=== PATIENT | female | born 1980 | race Caucasian/White ===

== ENCOUNTER 2018-09-02 15:50 | Emergency (ER) | payer OTHER ==
[2018-09-02 16:11] VITALS: BP 109/63; PULSE 76; TEMP 98.3; BMI 19.3
[2018-09-02] MEDS ORDERED: diphenhydrAMINE HCL 25 MG CAPSULE (FP) PO ONE ×2 (16:53→17:02)
[2018-09-02] MEDS ORDERED: DEXAMETHASONE LIQUID 0.5 MG/5 ML 240 ML BULK BOTTLE PO ONE (16:53)
[2018-09-02] MEDS ORDERED: predniSONE 20 MG TABLET (UD) PO ONE (16:55)
[2018-09-02] MEDS ORDERED: DEXAMETHASONE SOD PHOSPHATE 10 MG/1 ML VIAL ONE (17:01)
[2018-09-02] MEDS ORDERED: predniSONE 20 MG TABLET (UD) ONE (17:02)
--- NOTE | 2018-09-02 17:02 | PDOC ---
History of Present Illness - General Chief Complaint: Rash Stated Complaint: RASH Time Seen by Provider: 09/02/18 16:20 History Source: Patient Exam Limitations: No Limitations - History of Present Illness Initial Comments: 09/02/18 19:28 HISTORY OF PRESENT ILLNESS: 38-year-old woman presents emergency department for 2 weeks of rash neck, upper extremities and skin of the abdomen immediately above the waist. Patient is unable to identify any aggravating or alleviating factors. She denies any change in soaps, shampoos, conditioners, lotions, cosmetics, fabric softener, laundry detergent or soaps. She denies any change in foods or medications. Patient has not tried any auqo-cre-tglehdh remedies prior to evaluation. No recent travel or sick contacts. PAST MEDICAL HISTORY: Denies past medical history SURGICAL HISTORY: Denies ALLERGIES: No known drug allergies REVIEW OF SYSTEMS General/Constitutional: Denies fever or chills. Denies weakness, weight change. HEENT: Denies change in vision. Denies ear pain or discharge. Denies sore throat. Cardiovascular: Denies chest pain or shortness of breath. Respiratory: Denies cough, wheezing, or hemoptysis. Gastrointestinal: Denies nausea, vomiting, diarrhea or constipation. Denies rectal bleeding. Genitourinary: Denies dysuria, frequency, or change in urination. Musculoskeletal: Denies joint or muscle swelling or pain. Denies neck or back pain. Skin and breasts: see HPI Neurologic: Denies headache, vertigo, loss of consciousness, or loss of sensation. Psychiatric: Denies depression or anxiety. Endocrine: Denies increased thirst. Denies abnormal weight change. Hematologic/Lymphatic: Denies anemia, easy bleeding, or history of blood clots. Allergic/Immunologic: Denies hives or skin allergy. Denies latex allergy. PHYSICAL EXAM General Appearance: Well-appearing, appropriately dressed. No apparent distress , no intoxication. Respiratory/Chest: Lungs CTAB. No shortness of breath, chest tenderness, respiratory distress, accessory muscle use. No crackles, rales, rhonchi, stridor , wheezing, dullness Cardiovascular: RRR. S1, S2. No JVD, murmur, bradycardia, tachycardia. Integumentary: [place] raised pruritic maculopapular rash presents to bilateral antecubitals, skin at the base of the neck circumferentially and skin immediately superior to the iliac crest bilaterally. Multiple scratch patiño present around area of rash. Past History - Past Medical History Allergies/Adverse Reactions: Allergies Allergy/AdvReac Type Severity Reaction Status Date / Time No Known Allergies Allergy Verified 09/02/18 16:11 Home Medications: Ambulatory Orders predniSONE [Deltasone -] 40 mg PO DAILY #4 tablet 09/02/18 - Suicide/Smoking/Psychosocial Hx Smoking History: Never smoked Have you smoked in the past 12 months: No Information on smoking cessation initiated: No Hx Alcohol Use: No Drug/Substance Use Hx: No *Physical Exam - Vital Signs Last Vital Signs Temp Pulse Resp BP Pulse Ox 98.3 F 76 18 109/63 100 09/02/18 16:09 09/02/18 16:09 09/02/18 16:09 09/02/18 16:09 09/02/18 16:09 Medical Decision Making - Medical Decision Making 09/02/18 19:26 A/P: 38-year-old woman with maculopapular rash presents to bilateral antecubital, folds of the neck and skin immediately above the iliac crest bilaterally Parents is consistent with a dermatitis Prednisone 40 mg orally now Benadryl 50 mg orally now Discharge home with prescription for prednisone for the next 4 days. *DC/Admit/Observation/Transfer Diagnosis at time of Disposition: Dermatitis - Discharge Dispostion Disposition: HOME Condition at time of disposition: Stable - Prescriptions Prescriptions: predniSONE [Deltasone -] 40 mg PO DAILY #4 tablet - Referrals Referrals: ON STAFF,NOT [Primary Care Provider] - - Patient Instructions Additional Instructions: Rest, keep cool and dry- avoid strenuous activity or hot /humid environments Less hot showers, no abrasive soaps May use heavy creams like Eucerin or Cetaphil to keep skin moist May apply Aveeno, calamine lotion, [id number]-[id number] hydrocortisone creams as needed for symptoms May use Benadryl at night for antihistamine, Zyrtec/ Saadia or Claritin for daytime antihistamine use to help with itching May use exmz-chi-puwnevr hydrocortisone cream on all areas except face Try to identify cause for rash and avoid exposures Followup with PMD in one week if no resolution Make appointment with finishing area operator for evaluation when possible Continue prednisone 40 mg daily as directed Rest, keep cool and dry- avoid strenuous activity or hot /humid environments Less hot showers, no abrasive soaps May use heavy creams like Eucerin or Cetaphil to keep skin moist May apply Aveeno, calamine lotion, [id number] hydrocortisone creams as needed for symptoms May use Benadryl at night for antihistamine, Zyrtec/ Saadia or Claritin for daytime antihistamine use to help with itching May use [id number] hydrocortisone cream on all areas except face Try to identify cause for rash and avoid exposures Followup with PMD in one week if no resolution Make appointment with finishing area operator for evaluation when possible Continue prednisone 40 mg daily as directed [place], mantenga fresco y seco - evite la actividad extenuante o ambientes calientes / hmedos Duchas menos calientes, no jabones abrasivos Puede usar cremas pesadas [place] Eucerin o Cetaphil para mantener la piel hmeda Puede aplicar Aveeno, locin de calamina, cremas de hidrocortisona sin receta segn sea necesario para los sntomas Puede utilizar Benadryl en la noche para el antihistamnico, Zyrtec / Saadia o Claritin para el uso diurno del antihistamnico para ayudar con picar Puede usar crema de hidrocortisona de venta braulio en todas las reas excepto la elsa Trate de identificar la causa de la erupcin y evitar las exposiciones Seguimiento con PMD en darion semana si no hay resolucin Hacer darion divine con el dermatlogo para rosario evaluacin cuando sea posible Continuar con 40 mg de prednisona al da, segn las indicaciones - Post Discharge Activity
== END 2018-09-02 17:13 | disposition home or self-care (01) ==
LOC: JERFT 15:50
DX: L30.9 Dermatitis, unspecified (principal)
CPT/HCPCS: 99281-25